=== PATIENT | female | born 2000 | race Two or more races ===

== ENCOUNTER 2022-11-05 20:24 | Emergency (ER) | payer OTHER ==
[~2022-11-05] VITALS: Ht 167.6 cm; Wt 55.3 kg
== END 2022-11-05 22:16 | disposition home or self-care (01) ==
LOC: ER 20:24
DX: O99.512 Diseases of the respiratory system complicating pregnancy, second trimester (principal); J06.9 Acute upper respiratory infection, unspecified; Z3A.14 14 weeks gestation of pregnancy; Z20.822 Contact with and (suspected) exposure to COVID-19

== ENCOUNTER 2022-12-15 09:42 | Outpatient (CLI) | payer OTHER | END 2022-12-15 10:45 | disposition home or self-care (01) | LOC: PRENATAL 09:42 | PROVIDERS: ATTEND Obstetrics & Gynecology Maternal & Fetal Medicine | DX: O35.9XX0 Maternal care for (suspected) fetal abnormality and damage, unspecified, not applicable or unspecified (principal); O35.3XX0 Maternal care for (suspected) damage to fetus from viral disease in mother, not applicable or unspecified; Z3A.20 20 weeks gestation of pregnancy ==

== ENCOUNTER 2023-01-01 22:40 | Outpatient (CLI) | payer OTHER ==
[2023-01-01] MEDS ORDERED: PRENATAL TABLE1 EAC1 PO (22:49)
== END 2023-01-02 13:23 | disposition home or self-care (01) ==
LOC: OBS/DEL 22:40
PROVIDERS: ATTEND Obstetrics & Gynecology
DX: O26.892 Other specified pregnancy related conditions, second trimester (principal); Z3A.22 22 weeks gestation of pregnancy; R10.2 Pelvic and perineal pain

== ENCOUNTER 2023-02-15 04:50 | Emergency (ER) | payer OTHER ==
[~2023-02-15] VITALS: Ht 160 cm; Wt 78.5 kg
[~2023-02-15 04:50] MED LIST: PRENATAL TABLE1 EAC1 PO
== END 2023-02-15 05:51 | disposition home or self-care (01) ==
LOC: ER 04:50
DX: S80.02XA Contusion of left knee, initial encounter (principal); S90.01XA Contusion of right ankle, initial encounter; V49.9XXA Car occupant (driver) (passenger) injured in unspecified traffic accident, initial encounter; Y93.9 Activity, unspecified; Y92.413 State road as the place of occurrence of the external cause; Y99.9 Unspecified external cause status; Z91.040 Latex allergy status

== ENCOUNTER 2023-03-10 10:55 | Outpatient (CLI) | payer OTHER | END 2023-03-10 11:58 | disposition home or self-care (01) | LOC: PRENATAL 10:55 | PROVIDERS: ATTEND Obstetrics & Gynecology Maternal & Fetal Medicine | DX: O26.849 Uterine size-date discrepancy, unspecified trimester (principal); O36.8199 Decreased fetal movements, unspecified trimester, other fetus; Z3A.32 32 weeks gestation of pregnancy ==

== ENCOUNTER 2023-04-21 16:30 | Inpatient (IN) | payer OTHER ==
[~2023-04-21] VITALS: Ht 160 cm; Wt 3.2 kg
[2023-04-21] MEDS ORDERED: VALTREX1000 MG PO (17:10)
== END 2023-04-24 14:27 | disposition home or self-care (01) | DRG 787 ==
LOC: LDR 16:30 → O/R 16:30 → OB/GYN 21:26
PROVIDERS: ADMIT Obstetrics & Gynecology; ATTEND Obstetrics & Gynecology
PROC: 4A1HXCZ Monitoring of Products of Conception, Cardiac Rate, External Approach (ICD-10-PCS; 2023-04-21)
PROC: 10D00Z1 Extraction of Products of Conception, Low, Open Approach (ICD-10-PCS; principal; 2023-04-21 20:30)
DX: O32.1XX0 Maternal care for breech presentation, not applicable or unspecified (principal); O98.52 Other viral diseases complicating childbirth; R89.4 Abnormal immunological findings in specimens from other organs, systems and tissues; Z3A.38 38 weeks gestation of pregnancy; Z37.0 Single live birth; Z20.822 Contact with and (suspected) exposure to COVID-19